=== PATIENT | female | born 1995 | race Caucasian/White ===

== ENCOUNTER 2022-10-14 09:15 | Emergency (ER) | payer SELFPAY ==
[2022-10-14] MEDS: Ketorolac 30 MG/ML SDV IVPUSH ONE (09:31)
[2022-10-14] MEDS: Ondansetron 4 MG Tab.DIS PO ONE (09:34)
[2022-10-14] MEDS: Sodium Chloride 0.9% 10 ML Syringe FLUSH PRN (09:39)
[2022-10-14 09:50] LABS: ESTIMATED GFR 95 mL/min (>60)
[2022-10-14] MEDS: Sodium Chloride 0.9% 1,000 ML IV SCH (10:20)
== END 2022-10-14 11:55 | disposition home or self-care (01) ==
LOC: LB.ED 09:15
DX: N23 Unspecified renal colic (principal); N21.0 Calculus in bladder
CPT/HCPCS: 36415; 74176; 80048; 81001; 85027; 96361; 96374; 99283; 99284-25; J1885; J3490; J7030; Q0162